=== PATIENT | female | born 1960 | race Caucasian/White ===

== ENCOUNTER 2019-08-22 05:10 | Day surgery (SDC) | payer OTHER ==
[~2019-08-22] VITALS: Ht 149.9 cm; Wt 90.5 kg
[~2019-08-22 05:10] MED LIST: AMLO2.5T4 PO; CARB15DR OU; CIPROFLOXACIN HCL 0.3% 2.5 ML OPHTHALMIC SOLUTION ONE; CYCLOPENTOLATE HCL 1% 2 ML OPHTHALMIC SOLUTION ONE; DEXT15DR28 OU; FLURBIPROFEN SODIUM 0.03% 2.5 ML OPHTHALMIC SOLUTION ONE; FURO20 PO; INSNPH SQ; LEVE250T55 PO; LEVO75 PO; METO50 PO; MOXIOS OD; NEPA3DRO OD; POTA-92 PO; PRED5DRO25 OD; RINGERS SOLUTION,LACTATED 500 ML IV ONE; SODIUM CHLORIDE 0.9% 1,000 ML IV ONE; TETRACAINE HCL/PF 0.5% 4 ML OPHTHALMIC SOLUTION ONE; TROPICAMIDE 1% 2 ML OPHTHALMIC SOLUTION ONE
[2019-08-22] MEDS ORDERED: HYALURONATE SOD/CHONDROITIN SOD 0.5 ML VIAL IO ONE (05:11)
[2019-08-22] MEDS ORDERED: HYALURONATE SODIUM 12 MG/ML 0.8 ML SYRINGE IO ONE (05:11)
[2019-08-22] MEDS ORDERED: LIDOCAINE/PF 1% 2 ML VIAL IM ONE (05:11)
[2019-08-22] MEDS ORDERED: POVIDONE-IODINE 10% 15 ML SOLUTION UD TP ONE (05:11)
[2019-08-22] MEDS ORDERED: EPINEPHrine 1:1,000 [1 MG/ML] AMP IM ONE (05:11)
[2019-08-22 06:08] LABS: GLUCOMETER DEV NAME(LOC) SDS.; GLUCOSE,POINT OF CARE 101 MG/DL (70-110)
[2019-08-22] MEDS: CIPROFLOXACIN HCL 0.3% 2.5 ML OPHTHALMIC SOLUTION OD SCH ×3 (06:10→06:21)
[2019-08-22] MEDS: TROPICAMIDE 1% 2 ML OPHTHALMIC SOLUTION OD SCH ×3 (06:10→06:21)
[2019-08-22] MEDS: CYCLOPENTOLATE HCL 1% 2 ML OPHTHALMIC SOLUTION OD SCH ×3 (06:10→06:21)
[2019-08-22] MEDS ORDERED: RINGERS SOLUTION,LACTATED 500 ML IV ONE (06:20)
[2019-08-22] MEDS: FLURBIPROFEN SODIUM 0.03% 2.5 ML OPHTHALMIC SOLUTION OD SCH ×3 (06:28→06:43)
[2019-08-22] MEDS ORDERED: TETRACAINE HCL/PF 0.5% 4 ML OPHTHALMIC SOLUTION OD ONE (07:00)
[2019-08-22] MEDS ORDERED: FentaNYL CITRATE-PF 100 MCG/2 ML VIAL IVP ONE (12:00)
[2019-08-22] MEDS ORDERED: MIDAZOLAM HCL 2 MG/2 ML VIAL IVP ONE (12:00)
== END 2019-08-22 09:45 | disposition home or self-care (01) ==
LOC: SURGERY 05:10
PROVIDERS: ATTEND Ophthalmology
DX: E11.36 Type 2 diabetes mellitus with diabetic cataract (principal); H25.21 Age-related cataract, morgagnian type, right eye; I12.9 Hypertensive chronic kidney disease with stage 1 through stage 4 chronic kidney disease, or unspecified chronic kidney disease; E11.22 Type 2 diabetes mellitus with diabetic chronic kidney disease; N18.3 Chronic kidney disease, stage 3 (moderate); E03.9 Hypothyroidism, unspecified; E83.52 Hypercalcemia; E66.01 Morbid (severe) obesity due to excess calories; Z68.41 Body mass index [BMI] 40.0-44.9, adult; G47.00 Insomnia, unspecified; Z79.899 Other long term (current) drug therapy; Z88.8 Allergy status to other drugs, medicaments and biological substances; Z98.890 Other specified postprocedural states
CPT/HCPCS: 66982; 82962; 93005; J0171; J2250; J3010; J3490 ×2; J7120; V2632